=== PATIENT | male | born 1970 | race Caucasian/White ===

== ENCOUNTER 2016-12-03 18:44 | Emergency (ER) | payer OTHER ==
[~2016-12-03] VITALS: Ht 172.7 cm; Wt 83.2 kg
[~2016-12-03 18:44] MED LIST: B12-ACTIVE1 MG PO; CIPROFLOXACN500 MG PO; CIPROFLOXACN750 MG PO; LORTAB 5/3255 MG PO; MEDDOSEPAK OR; METRONIDAZOL500 MG PO; NAPROSYN500 MG OR; NAPROSYN500 MG PO; NAUSEA MED; NORCO1 TA1 PO; PROBIOTIC1 TAB PO; TRAMADOL HCL50 MG PO; ULTRAM50 MG PO; ZANTAC150 M1 PO; ZOFRAN4 MG/TAB PO
[2016-12-03] MEDS ORDERED: PANTOPRAZOLE SO40 MG PO (19:21)
[2016-12-03 20:03] LABS: HEMATOCRIT 50.4 % (39.0-50.0); HEMOGLOBIN 17.3 g/dl (14.0-18.0); IMMATURE GRANULOCYTES 0.3 % (0.0-1.0); MEAN CELL VOLUME 94.9 fL CALC (80.0-100.0); MEAN CORPUSCULAR HGB 32.6 pG CALC (26.0-32.0); MEAN CORPUSCULAR HGB CONC 34.3 g/L CALC (32.0-36.0); NEUT# 4.19 thou/uL (1.82-7.42); RED BLOOD COUNT 5.31 mill/uL (4.70-6.10); RED CELL DISTRI WIDTH 13.4 % (11.5-15.5)
[2016-12-03 20:20] LABS: ALBUMIN 4.6 g/dL (3.2-5.0); ALKALINE PHOSPHATASE 109 u/l (38-126); AMYLASE 87 u/l (30-110); ANION GAP 17 (6-22 (CALC)); BILIRUBIN, TOTAL 0.7 mg/dL (0.0-1.4); BUN 11 mg/dL (9-20); BUN/CREATININE RATIO 10 (12-20 (CALC)); CALCIUM 9.7 mg/dL (8.4-10.2); CARBON DIOXIDE 27 mmol/l (22-30); CHLORIDE 101 mmol/l (95-108); CREATININE 1.1 mg/dL (0.7-1.3); GFR > 60 ML/MIN (>=60 (CALC)); GFR FOR AFR.AMER. > 60 ML/MIN (>=60 (CALC)); GLUCOSE 99 mg/dL (75-110); LIPASE 163 u/l (23-300); POTASSIUM 4.2 mmol/l (3.5-5.1); SGOT/AST 86 u/l (17-59); SGPT/ALT 145 u/l (21-72); SODIUM 140 mmol/l (137-146); TOTAL PROTEIN 7.8 g/dL (6.3-8.2)
[2016-12-03 20:21] LABS: ACT PARTIAL THROMBO TIME 26.4 SECONDS (20.0-32.5); INTERNATIONAL NORMALIZED RATIO 1.1 RATIO (0.7-1.3); PROTHROMBIN TIME 11.5 SECONDS (9.0-12.5)
[2016-12-03 23:30] VITALS: BP 159/90
== END 2016-12-03 23:30 | DRG 392 ==
LOC: ED 18:44
PROVIDERS: Emergency Medicine
DX: K57.32 Diverticulitis of large intestine without perforation or abscess without bleeding (principal); R00.1 Bradycardia, unspecified; K62.5 Hemorrhage of anus and rectum; R10.32 Left lower quadrant pain; R19.7 Diarrhea, unspecified; R11.0 Nausea
CPT/HCPCS: J1956; S0164

== ENCOUNTER 2017-01-27 09:27 | Inpatient (IN) | payer OTHER ==
[~2017-01-27] VITALS: Ht 172.7 cm; Wt 80.2 kg
[~2017-01-27 09:27] MED LIST changes: +PANTOPRAZOLE SO40 MG PO
[2017-01-27 09:57] VITALS: BP 128/88
[2017-01-27 12:46] LABS: HEMATOCRIT 46.9 % (39.0-50.0); IMMATURE GRANULOCYTES 0.1 % (0.0-1.0); MEAN CELL VOLUME 89.8 fL CALC (80.0-100.0); MEAN CORPUSCULAR HGB 30.7 pG CALC (26.0-32.0); MEAN CORPUSCULAR HGB CONC 34.1 g/L CALC (32.0-36.0); NEUT# 5.18 thou/uL (1.82-7.42); RED BLOOD COUNT 5.22 mill/uL (4.70-6.10); RED CELL DISTRI WIDTH 11.9 % (11.5-15.5)
[2017-01-27 12:55] LABS: ALBUMIN 4.6 g/dL (3.2-5.0); ALKALINE PHOSPHATASE 64 u/l (38-126); ANION GAP 16 (6-22 (CALC)); BILIRUBIN, TOTAL 0.6 mg/dL (0.0-1.4); BUN 9 mg/dL (9-20); BUN/CREATININE RATIO 10 (12-20 (CALC)); CALCIUM 9.5 mg/dL (8.4-10.2); CARBON DIOXIDE 26 mmol/l (22-30); CHLORIDE 103 mmol/l (95-108); CREATININE 0.9 mg/dL (0.7-1.3); GFR > 60 ML/MIN (>=60 (CALC)); GFR FOR AFR.AMER. > 60 ML/MIN (>=60 (CALC)); GLUCOSE 115 mg/dL (75-110); POTASSIUM 4.5 mmol/l (3.5-5.1); SGOT/AST 34 u/l (17-59); SGPT/ALT 60 u/l (21-72); SODIUM 141 mmol/l (137-146); TOTAL PROTEIN 7.3 g/dL (6.3-8.2)
[2017-01-27 16:00] VITALS: BP 132/93
[2017-01-27 19:45] VITALS: BP 127/86
[2017-01-28] VITALS (7 sets, daily range): BP systolic 113–143; BP diastolic 71–92
[2017-01-29 03:40] VITALS: BP 128/86
[2017-01-29 08:35] VITALS: BP 149/93
[2017-01-29] MEDS ORDERED: AUGMENTIN875TAB PO (11:01)
[2017-01-29] MEDS ORDERED: BUSPAR5 M1 PO (11:02)
[2017-01-29] MEDS ORDERED: ZOFRAN ODT4 MG PO (11:04)
== END 2017-01-29 11:36 | disposition home or self-care (01) | DRG 392 ==
LOC: ENPENDDIS → MS2 09:27
PROVIDERS: ADMIT Internal Medicine; ATTEND Internal Medicine
DX: K57.32 Diverticulitis of large intestine without perforation or abscess without bleeding (principal); F41.9 Anxiety disorder, unspecified; K29.70 Gastritis, unspecified, without bleeding
CPT/HCPCS: J1650

== ENCOUNTER 2017-02-15 16:40 | Inpatient (IN) | payer OTHER ==
[~2017-02-15] VITALS: Ht 172.7 cm; Wt 70.0 kg
[~2017-02-15 16:40] MED LIST changes: +AUGMENTIN875TAB PO; +BUSPAR5 M1 PO; +ZOFRAN ODT4 MG PO
[2017-02-15 17:34] LABS: HEMATOCRIT 48.9 % (39.0-50.0); HEMOGLOBIN 16.7 g/dl (14.0-18.0); IMMATURE GRANULOCYTES 0.2 % (0.0-1.0); MEAN CELL VOLUME 88.9 fL CALC (80.0-100.0); MEAN CORPUSCULAR HGB 30.4 pG CALC (26.0-32.0); MEAN CORPUSCULAR HGB CONC 34.2 g/L CALC (32.0-36.0); NEUT# 10.74 thou/uL (1.82-7.42); RED BLOOD COUNT 5.5 mill/uL (4.70-6.10); RED CELL DISTRI WIDTH 12.1 % (11.5-15.5)
[2017-02-15 17:49] LABS: ALBUMIN 4.6 g/dL (3.2-5.0); ALKALINE PHOSPHATASE 96 u/l (38-126); AMYLASE 79 u/l (30-110); ANION GAP 16 (6-22 (CALC)); BILIRUBIN, TOTAL 0.5 mg/dL (0.0-1.4); BUN 10 mg/dL (9-20); BUN/CREATININE RATIO 13 (12-20 (CALC)); CALCIUM 9.4 mg/dL (8.4-10.2); CARBON DIOXIDE 27 mmol/l (22-30); CHLORIDE 104 mmol/l (95-108); CREATININE 0.8 mg/dL (0.7-1.3); GFR > 60 ML/MIN (>=60 (CALC)); GFR FOR AFR.AMER. > 60 ML/MIN (>=60 (CALC)); GLUCOSE 101 mg/dL (75-110); LIPASE 104 u/l (23-300); SGOT/AST 24 u/l (17-59); SGPT/ALT 51 u/l (21-72); SODIUM 143 mmol/l (137-146); TOTAL PROTEIN 7.2 g/dL (6.3-8.2)
[2017-02-15 19:33] LABS: URINE BILIRUBIN - DIPSTICK NEGATIVE (NEGATIVE); URINE BLOOD DIPSTICK NEGATIVE (NEGATIVE); URINE CLARITY CLEAR; URINE COLOR YELLOW; URINE GLUCOSE - DIPSTICK NEGATIVE (NEGATIVE); URINE KETONE NEGATIVE (NEGATIVE); URINE LEUK ESTERASE NEGATIVE (NEGATIVE); URINE NITRITE - DIPSTICK NEGATIVE (Negative); URINE PH 5.5 (4.5-8.0); URINE PROTEIN - DIPSTICK NEGATIVE (NEG-TRACE); URINE UROBILINOGEN - DIPSTICK 0.2 E.U./dL (0.2)
[2017-02-15] MEDS ORDERED: XANAX0.25 MG PO (20:13)
[2017-02-15] MEDS ORDERED: AMOX/K CLAV875 M1 PO (20:14)
[2017-02-16 05:00] VITALS: BP 106/74
[2017-02-16 07:26] VITALS: BP 122/79
[2017-02-16 13:45] VITALS: BP 131/71
[2017-02-16 16:15] VITALS: BP 119/76
[2017-02-16 20:30] VITALS: BP 124/77
[2017-02-16 23:55] VITALS: BP 109/71
[2017-02-17 04:35] VITALS: BP 112/72
[2017-02-17 06:21] LABS: HEMATOCRIT 42.2 % (39.0-50.0); HEMOGLOBIN 14.1 g/dl (14.0-18.0); IMMATURE GRANULOCYTES 0.2 % (0.0-1.0); MEAN CELL VOLUME 91.1 fL CALC (80.0-100.0); MEAN CORPUSCULAR HGB 30.5 pG CALC (26.0-32.0); MEAN CORPUSCULAR HGB CONC 33.4 g/L CALC (32.0-36.0); NEUT# 3.71 thou/uL (1.82-7.42); RED BLOOD COUNT 4.63 mill/uL (4.70-6.10); RED CELL DISTRI WIDTH 12.3 % (11.5-15.5)
[2017-02-17 06:41] LABS: ANION GAP 12 (6-22 (CALC)); BUN 6 mg/dL (9-20); BUN/CREATININE RATIO 6 (12-20 (CALC)); CALCIUM 8.5 mg/dL (8.4-10.2); CARBON DIOXIDE 25 mmol/l (22-30); CHLORIDE 109 mmol/l (95-108); CREATININE 0.9 mg/dL (0.7-1.3); GFR > 60 ML/MIN (>=60 (CALC)); GFR FOR AFR.AMER. > 60 ML/MIN (>=60 (CALC)); GLUCOSE 82 mg/dL (75-110); POTASSIUM 3.9 mmol/l (3.5-5.1); SODIUM 142 mmol/l (137-146)
[2017-02-17 08:12] VITALS: BP 128/72
[2017-02-17 09:13] LABS: C. DIFFICILE TOXIN A&B NEGATIVE (NEGATIVE)
[2017-02-17 11:11] VITALS: BP 130/80
[2017-02-17 15:17] VITALS: BP 114/69
[2017-02-17 19:05] VITALS: BP 120/73
[2017-02-17 23:25] VITALS: BP 127/77
[2017-02-18 04:33] VITALS: BP 119/74
[2017-02-18 07:43] VITALS: BP 135/82
[2017-02-18] MEDS ORDERED: METRONIDAZOL500 MG PO (11:22)
[2017-02-18] MEDS ORDERED: XANAX0.25 MG PO (11:22)
[2017-02-18] MEDS ORDERED: FLORASTOR250 M1 PO (11:22)
[2017-02-18] MEDS ORDERED: DILAUDID 2MG2 MG/TA1 PO (11:22)
[2017-02-18] MEDS ORDERED: INVANZ1 GM IJ (11:22)
[2017-02-18 13:00] VITALS: BP 136/84
== END 2017-02-18 14:53 | disposition home or self-care (01) | DRG 392 ==
LOC: ENPENDDIS → ED 16:40 → ED-I 19:40 → ED 20:08 → MS2 20:09
PROVIDERS: Emergency Medicine; Internal Medicine; Nurse Practitioner Family; ADMIT Internal Medicine; ATTEND Internal Medicine
DX: K57.32 Diverticulitis of large intestine without perforation or abscess without bleeding (principal); N20.0 Calculus of kidney; F41.0 Panic disorder [episodic paroxysmal anxiety]; K44.9 Diaphragmatic hernia without obstruction or gangrene; K29.70 Gastritis, unspecified, without bleeding
CPT/HCPCS: J1335; J1650; J2060

== ENCOUNTER 2017-05-08 12:02 | Emergency (ER) | payer OTHER ==
[~2017-05-08] VITALS: Ht 172.7 cm; Wt 79.0 kg
[~2017-05-08 12:02] MED LIST changes: +AMOX/K CLAV875 M1 PO; +DILAUDID 2MG2 MG/TA1 PO; +FLORASTOR250 M1 PO; +INVANZ1 GM IJ; +XANAX0.25 MG PO
[2017-05-08 13:45] LABS: URINE BILIRUBIN - DIPSTICK NEGATIVE (NEGATIVE); URINE BLOOD DIPSTICK NEGATIVE (NEGATIVE); URINE CLARITY CLEAR; URINE COLOR YELLOW; URINE GLUCOSE - DIPSTICK NEGATIVE (NEGATIVE); URINE KETONE NEGATIVE (NEGATIVE); URINE LEUK ESTERASE NEGATIVE (NEGATIVE); URINE NITRITE - DIPSTICK NEGATIVE (Negative); URINE PROTEIN - DIPSTICK NEGATIVE (NEG-TRACE); URINE SPECIFIC GRAVITY <=1.005; URINE UROBILINOGEN - DIPSTICK 0.2 E.U./dL (0.2)
[2017-05-08 13:49] LABS: BARBITURATES NEGATIVE (NEGATIVE); COCAINE NEGATIVE (NEGATIVE); METHADONE NEGATIVE (NEGATIVE); OXCYCODONE NEGATIVE (NEGATIVE); TETRAHYDROCANNABIONOL NEGATIVE (NEGATIVE); TRICYLIC ANTIDEPRESSANTS NEGATIVE (NEGATIVE)
[2017-05-08 13:59] LABS: HEMATOCRIT 47.7 % (39.0-50.0); IMMATURE GRANULOCYTES 0.8 % (0.0-1.0); MEAN CELL VOLUME 86.9 fL CALC (80.0-100.0); MEAN CORPUSCULAR HGB CONC 35.6 g/L CALC (32.0-36.0); NEUT# 6.8 thou/uL (1.82-7.42); RED BLOOD COUNT 5.49 mill/uL (4.70-6.10); RED CELL DISTRI WIDTH 13.2 % (11.5-15.5)
[2017-05-08 14:18] LABS: ALBUMIN 4.8 g/dL (3.2-5.0); ALKALINE PHOSPHATASE 121 u/l (38-126); AMYLASE 51 u/l (30-110); ANION GAP 18 (6-22 (CALC)); BILIRUBIN, TOTAL 1.1 mg/dL (0.0-1.4); BUN 8 mg/dL (9-20); BUN/CREATININE RATIO 11 (12-20 (CALC)); CALCIUM 9.8 mg/dL (8.4-10.2); CARBON DIOXIDE 26 mmol/l (22-30); CHLORIDE 103 mmol/l (95-108); CREATININE 0.8 mg/dL (0.7-1.3); GFR > 60 ML/MIN (>=60 (CALC)); GFR FOR AFR.AMER. > 60 ML/MIN (>=60 (CALC)); GLUCOSE 92 mg/dL (75-110); LIPASE 79 u/l (23-300); MAGNESIUM 2.2 mg/dL (1.6-2.3); POTASSIUM 3.6 mmol/l (3.5-5.1); SGOT/AST 23 u/l (17-59); SGPT/ALT 47 u/l (21-72); SODIUM 143 mmol/l (137-146); TOTAL PROTEIN 7.8 g/dL (6.3-8.2)
[2017-05-08 14:52] VITALS: BP 141/99
== END 2017-05-08 15:08 | disposition home or self-care (01) | DRG 880 ==
LOC: ED 12:02
PROVIDERS: Emergency Medicine
DX: F41.9 Anxiety disorder, unspecified (principal); K21.9 Gastro-esophageal reflux disease without esophagitis; K29.70 Gastritis, unspecified, without bleeding; Z90.49 Acquired absence of other specified parts of digestive tract

== ENCOUNTER 2017-05-30 08:17 | Emergency (ER) | payer OTHER ==
[~2017-05-30] VITALS: Ht 172.7 cm; Wt 75.0 kg
[2017-05-30 08:40] LABS: HEMOGLOBIN 16.9 g/dl (14.0-18.0); IMMATURE GRANULOCYTES 0.4 % (0.0-1.0); MEAN CELL VOLUME 89.3 fL CALC (80.0-100.0); MEAN CORPUSCULAR HGB 30.8 pG CALC (26.0-32.0); MEAN CORPUSCULAR HGB CONC 34.5 g/L CALC (32.0-36.0); NEUT# 4.77 thou/uL (1.82-7.42); RED BLOOD COUNT 5.49 mill/uL (4.70-6.10); RED CELL DISTRI WIDTH 12.5 % (11.5-15.5)
[2017-05-30 08:55] LABS: ALBUMIN 4.5 g/dL (3.2-5.0); ALKALINE PHOSPHATASE 108 u/l (38-126); ANION GAP 15 (6-22 (CALC)); BILIRUBIN, TOTAL 0.6 mg/dL (0.0-1.4); BUN 13 mg/dL (9-20); BUN/CREATININE RATIO 12 (12-20 (CALC)); CALCIUM 9.5 mg/dL (8.4-10.2); CARBON DIOXIDE 25 mmol/l (22-30); CHLORIDE 107 mmol/l (95-108); CREATININE 1.1 mg/dL (0.7-1.3); GFR > 60 ML/MIN (>=60 (CALC)); GFR FOR AFR.AMER. > 60 ML/MIN (>=60 (CALC)); GLUCOSE 139 mg/dL (75-110); POTASSIUM 3.7 mmol/l (3.5-5.1); SGOT/AST 30 u/l (17-59); SGPT/ALT 57 u/l (21-72); SODIUM 143 mmol/l (137-146); TOTAL PROTEIN 7.2 g/dL (6.3-8.2)
[2017-05-30] MEDS ORDERED: PERCOCET 5/325M1 TAB PO (10:11)
[2017-05-30] MEDS ORDERED: TAMSULOSIN0.4 MG PO (10:11)
[2017-05-30] MEDS ORDERED: BACTRIM DS1 TAB PO (10:11)
[2017-05-30] MEDS ORDERED: ZOFRAN ODT4 MG PO (10:11)
[2017-05-30 10:20] VITALS: BP 141/72
== END 2017-05-30 10:30 | disposition home or self-care (01) | DRG 694 ==
LOC: ED 08:17
PROVIDERS: Emergency Medicine
DX: N20.1 Calculus of ureter (principal); K21.9 Gastro-esophageal reflux disease without esophagitis; K29.70 Gastritis, unspecified, without bleeding; K57.30 Diverticulosis of large intestine without perforation or abscess without bleeding

== ENCOUNTER 2017-06-01 06:31 | Emergency (ER) | payer OTHER ==
[~2017-06-01] VITALS: Ht 172.7 cm; Wt 83.4 kg
[~2017-06-01 06:31] MED LIST changes: +BACTRIM DS1 TAB PO; +PERCOCET 5/325M1 TAB PO; +TAMSULOSIN0.4 MG PO
[2017-06-01 07:38] LABS: HEMATOCRIT 42.3 % (39.0-50.0); HEMOGLOBIN 14.9 g/dl (14.0-18.0); IMMATURE GRANULOCYTES 0.4 % (0.0-1.0); MEAN CELL VOLUME 88.1 fL CALC (80.0-100.0); MEAN CORPUSCULAR HGB CONC 35.2 g/L CALC (32.0-36.0); NEUT# 11.52 thou/uL (1.82-7.42); RED BLOOD COUNT 4.8 mill/uL (4.70-6.10); RED CELL DISTRI WIDTH 12.8 % (11.5-15.5)
[2017-06-01 07:54] LABS: ALBUMIN 3.8 g/dL (3.2-5.0); ALKALINE PHOSPHATASE 100 u/l (38-126); ANION GAP 13 (6-22 (CALC)); BILIRUBIN, TOTAL 0.9 mg/dL (0.0-1.4); BUN 7 mg/dL (9-20); BUN/CREATININE RATIO 7 (12-20 (CALC)); CALCIUM 9.1 mg/dL (8.4-10.2); CARBON DIOXIDE 23 mmol/l (22-30); CHLORIDE 110 mmol/l (95-108); CREATININE 1.1 mg/dL (0.7-1.3); GFR > 60 ML/MIN (>=60 (CALC)); GFR FOR AFR.AMER. > 60 ML/MIN (>=60 (CALC)); GLUCOSE 118 mg/dL (75-110); POTASSIUM 4.2 mmol/l (3.5-5.1); SGOT/AST 14 u/l (17-59); SGPT/ALT 40 u/l (21-72); SODIUM 141 mmol/l (137-146); TOTAL PROTEIN 6.3 g/dL (6.3-8.2)
[2017-06-01 08:04] LABS: URINE BILIRUBIN - DIPSTICK NEGATIVE (NEGATIVE); URINE BLOOD DIPSTICK MODERATE (NEGATIVE); URINE CLARITY CLEAR; URINE COLOR YELLOW; URINE GLUCOSE - DIPSTICK NEGATIVE (NEGATIVE); URINE KETONE TRACE mg/dL (NEGATIVE); URINE LEUK ESTERASE TRACE (NEGATIVE); URINE NITRITE - DIPSTICK NEGATIVE (Negative); URINE PROTEIN - DIPSTICK NEGATIVE (NEG-TRACE); URINE SPECIFIC GRAVITY <=1.005; URINE UROBILINOGEN - DIPSTICK 0.2 E.U./dL (0.2)
[2017-06-01 08:15] LABS: URINE WBC 0-2 WBC/hpf (0-5)
[2017-06-01 08:16] LABS: URINE RBC 0-2 RBC/hpf (0-5)
[2017-06-01 10:07] VITALS: BP 122/75
[2017-06-01] MEDS ORDERED: MIRALAX3350 N1 PO (10:27)
== END 2017-06-01 10:25 | disposition home or self-care (01) | DRG 694 ==
LOC: ED 06:31
PROVIDERS: Emergency Medicine
DX: N20.0 Calculus of kidney (principal); K21.9 Gastro-esophageal reflux disease without esophagitis; K29.70 Gastritis, unspecified, without bleeding
CPT/HCPCS: Q9967

== ENCOUNTER → 2018-05-22 | Outpatient (REF) | payer SELFPAY ==
[~2018-05-22] MED LIST changes: +MIRALAX3350 N1 PO
[2018-05-22 10:46] LABS: URINE BILIRUBIN - DIPSTICK NEGATIVE (NEGATIVE); URINE BLOOD DIPSTICK TRACE-INTACT (NEGATIVE); URINE COLOR YELLOW; URINE GLUCOSE - DIPSTICK NEGATIVE (NEGATIVE); URINE KETONE NEGATIVE (NEGATIVE); URINE LEUK ESTERASE NEGATIVE (Negative); URINE NITRITE - DIPSTICK NEGATIVE (Negative); URINE PROTEIN - DIPSTICK NEGATIVE (NEG-TRACE); URINE SPECIFIC GRAVITY 1.025; URINE UROBILINOGEN - DIPSTICK 0.2 E.U./dL (0.2)
[2018-05-22 10:55] LABS: URINE CLARITY CLEAR
[2018-05-22 11:23] LABS: ALBUMIN 4.2 g/dL (3.2-5.0); ALKALINE PHOSPHATASE 108 u/l (38-126); ANION GAP 14 (6-22 (CALC)); BILIRUBIN, TOTAL 0.6 mg/dL (0.0-1.4); BUN 17 mg/dL (9-20); BUN/CREATININE RATIO 15 (12-20 (CALC)); CARBON DIOXIDE 26 mmol/l (22-30); CHLORIDE 105 mmol/l (95-108); CREATININE 1.1 mg/dL (0.7-1.3); GFR > 60 ML/MIN (>=60 (CALC)); GFR FOR AFR.AMER. > 60 ML/MIN (>=60 (CALC)); POTASSIUM 4.3 mmol/l (3.5-5.1); SGOT/AST 19 u/l (17-59); SODIUM 140 mmol/l (137-146); TOTAL PROTEIN 7.1 g/dL (6.3-8.2)
== END | disposition home or self-care (01) | DRG 696 ==
LOC: LAB 10:01
PROVIDERS: ATTEND Nurse Practitioner
DX: R31.9 Hematuria, unspecified (principal); M25.551 Pain in right hip

== ENCOUNTER 2019-09-13 12:22 | Inpatient (IN) | payer SELFPAY ==
[~2019-09-13] VITALS: Ht 172.7 cm; Wt 87.0 kg
--- NOTE | 2019-09-13 12:40 | NUR ---
PATIENT SENT TO WAITING ROOM, AMBULATES WITH STEADY GAIT. WAITING ON CLEAN ROOM. VERBAL UNDERSTANDING FROM PATIENT.
--- NOTE | 2019-09-13 12:52 | NUR ---
PATIENT AMBULATES TO ROOM WITH STEADY GAIT, GOWN GIVEN. AT BEDSIDE.
[2019-09-13 13:22] LABS: HEMATOCRIT 55.1 % (39.0-50.0); HEMOGLOBIN 18.8 g/dl (14.0-18.0); IMMATURE GRANULOCYTES 0.4 % (0.0-5.0); MEAN CELL VOLUME 84.3 fL CALC (80.0-100.0); MEAN CORPUSCULAR HGB 28.7 pG CALC (26.0-32.0); MEAN CORPUSCULAR HGB CONC 34.1 g/L CALC (32.0-36.0); NEUT# 14.15 thou/uL (1.82-7.42); RED BLOOD COUNT 6.54 mill/uL (4.70-6.10); RED CELL DISTRI WIDTH 13.2 % (11.5-15.5)
[2019-09-13 13:41] LABS: ALBUMIN 4.7 g/dL (3.2-5.0); ALKALINE PHOSPHATASE 94 u/l (38-126); ANION GAP 16 (6-22 (CALC)); BUN 13 mg/dL (9-20); BUN/CREATININE RATIO 11 (12-20 (CALC)); CARBON DIOXIDE 26 mmol/l (22-30); CHLORIDE 95 mmol/l (95-108); CREATININE 1.2 mg/dL (0.7-1.3); GFR > 60 ML/MIN (>=60 (CALC)); GFR FOR AFR.AMER. > 60 ML/MIN (>=60 (CALC)); LIPASE 67 u/l (23-300); POTASSIUM 4.4 mmol/l (3.5-5.1); SGOT/AST 25 u/l (17-59); SODIUM 133 mmol/l (137-146); TOTAL PROTEIN 8.2 g/dL (6.3-8.2)
--- NOTE | 2019-09-13 13:47 | NUR ---
MD AT BEDSIDE EVALUATING PT AND DISCUSSING PT HX.
[2019-09-13] MEDS ORDERED: LOSARTAN POTASS50 MG PO (14:36)
[2019-09-13] MEDS ORDERED: BYSTOLIC10 MG PO (14:36)
[2019-09-13] MEDS ORDERED: PANTOPRAZOLE SO40 M1 PO (14:37)
[2019-09-13] MEDS ORDERED: NORTRIPTYLIN10 MG PO (14:37)
[2019-09-13] MEDS ORDERED: ALPRAZOLAM0.25 MG PO (14:38)
--- NOTE | 2019-09-13 14:39 | NUR ---
PT RETURNED FROM CT ADVSIED OF WAIT TIME. VSS. IV SITE HEALTHY. PT REPORTS FEELING IMPROVED DENIES PAIN AT THIS TIME.
--- NOTE | 2019-09-13 16:13 | NUR ---
NG TUBE PLACEMENT VERIFIED VIA AUSCULTATION.
--- NOTE | 2019-09-13 16:58 | NUR ---
REPORT CALLED TO AIDEN, NURSE ON [facility]
--- NOTE | 2019-09-13 17:14 | NUR ---
DR MORAN AT BEDSIDE TO SEE PT. DISCUSSED POC W/PT.
[2019-09-13 18:00] LABS: URINE BILIRUBIN - DIPSTICK NEGATIVE (NEGATIVE); URINE BLOOD DIPSTICK NEGATIVE (NEGATIVE); URINE COLOR YELLOW; URINE GLUCOSE - DIPSTICK NEGATIVE (NEGATIVE); URINE KETONE TRACE mg/dL (NEGATIVE); URINE LEUK ESTERASE NEGATIVE (NEGATIVE); URINE NITRITE - DIPSTICK NEGATIVE (Negative); URINE PH 5.5 (4.5-8.0); URINE PROTEIN - DIPSTICK NEGATIVE (NEG-TRACE); URINE SPECIFIC GRAVITY <=1.005; URINE UROBILINOGEN - DIPSTICK 0.2 E.U./dL (0.2)
--- NOTE | 2019-09-13 18:10 | NUR ---
PT TO MEDSURG IN STABLE CONDITION. NG TUBE PATENT. IV SITE LAC HEALTHY. VSS. DENIES PAIN. RETURN OF APPROX 600ML OF DARK BROWN FLUID IN SUCTION CANISTER.
--- NOTE | 2019-09-13 18:15 | NUR ---
PT ARRIVED TO FLOOR ACCOMPANIED BY RN. NO DISTRESS
[2019-09-13 18:37] VITALS: BP 134/92
--- NOTE | 2019-09-13 18:57 | NUR ---
CALL PLACED TO MANAGER UTILITY FOR NATHAN
--- NOTE | 2019-09-13 19:15 | NUR ---
REPORT RECEIVED FROM DIPAK ESCOBAR. PT RESTING IN BED WITH FAMILY AT BEDSIDE. SAFETY PRECAUTIONS NI PLACE. WILL CONTINUE TO MONITOR.
--- NOTE | 2019-09-13 20:10 | NUR ---
PT RESTING IN BED FAMILY AT BEDSIDE. PT IS ALERT AND ORIENTED. RESPIRATIONS EVEN AND UNLABORED, LUNGS SOUND CLEAR. PEDEAL PULSES STRONG. SAFETY PRECAUTIONS IN PLACE. WILL CONTINUE TO MONITOR.
[2019-09-13 23:56] VITALS: BP 130/89
--- NOTE | 2019-09-14 00:15 | NUR ---
PT RESTING IN BED, RESPIRATIONS EVEN AND UNLABORED ON RA. NO S.S OF DISTRESS AT THIS TIME. SAFETY PRECAUTIONS IN PLACE. WILL CONTINUE TO MONITOR.
[2019-09-14 04:00] VITALS: BP 134/82
--- NOTE | 2019-09-14 04:02 | NUR ---
PT RESTING IN BED, RESPIRATIONS EVEN AND UNLABORED ON RA. NO S.S OF DISTRESS AT THIS TIME. SAFETY PRECAUTIONS IN PLACE. WILL CONTINUE TO MONITOR.
[2019-09-14 05:31] LABS: ALBUMIN 3.8 g/dL (3.2-5.0); ALKALINE PHOSPHATASE 75 u/l (38-126); ANION GAP 13 (6-22 (CALC)); BUN 19 mg/dL (9-20); BUN/CREATININE RATIO 14 (12-20 (CALC)); CARBON DIOXIDE 26 mmol/l (22-30); CHLORIDE 100 mmol/l (95-108); CREATININE 1.4 mg/dL (0.7-1.3); GFR 53 ML/MIN (>=60 (CALC)); GFR FOR AFR.AMER. > 60 ML/MIN (>=60 (CALC)); POTASSIUM 4.6 mmol/l (3.5-5.1); SGOT/AST 21 u/l (17-59); SODIUM 134 mmol/l (137-146); TOTAL PROTEIN 6.7 g/dL (6.3-8.2)
[2019-09-14 05:38] LABS: BILIRUBIN, TOTAL 1.5 mg/dL (0.0-1.4)
[2019-09-14 07:55] VITALS: BP 131/90
--- NOTE | 2019-09-14 07:55 | NUR ---
RESTING IN BED ON ROUNDS. PATIENT VERY ANXIOUS AND C/O PAIN. SHIFT ASSESSMENT COMPLETED. NGT TO LIS DRAINING DARK GREEN MATERIAL. ABD SOFTLY DISTENDED WITH ACTIVE BOWEL SOUNDS. C/O TENDERNESS TO RLQ AND LLQ. IV SITE IN LAC #22 WITH NS INFUSING AT 150 ML/HR. DISCUSSED PLAN OF CARE. DENIES NEEDS AT THIS TIME. CALL SHABAZZ IN REACH.
--- NOTE | 2019-09-14 08:06 | NUR ---
MEDICATED FOR ABD PAIN ORDERED.
--- NOTE | 2019-09-14 08:20 | NUR ---
PATIENT LEFT UNIT FOR SMALL BOWEL SERIES VIA WC.
[2019-09-14 08:38] LABS: HEMATOCRIT 50.4 % (39.0-50.0); MEAN CORPUSCULAR HGB 28.5 pG CALC (26.0-32.0); MEAN CORPUSCULAR HGB CONC 33.1 g/L CALC (32.0-36.0); RED BLOOD COUNT 5.86 mill/uL (4.70-6.10); RED CELL DISTRI WIDTH 13.2 % (11.5-15.5)
[2019-09-14 08:39] LABS: HEMOGLOBIN 16.7 g/dl (14.0-18.0)
--- NOTE | 2019-09-14 10:45 | NUR ---
PATIENT RETURNED FROM XRAY DEPARTMENT. NGT REMAINS CLAMPED AND PATIENT UP AMBULATING IN HALLS WITH STABLE STANCE AND STEADY GAIT. PATIENT HAS HAD A LOOSE BROWN STOOL SINCE RETURNING FROM XRAY.
--- NOTE | 2019-09-14 11:25 | NUR ---
PATIENT BACK TO XRAY.
--- NOTE | 2019-09-14 12:10 | NUR ---
PATIENT RETURNED FROM XRAY. NGT HAS BEEN REMOVED. DR WATTERS IN TO SEE PATIENT.
[2019-09-14] MEDS ORDERED: CIPROFLOXACN500 MG PO (12:30)
[2019-09-14] MEDS ORDERED: METRONIDAZOL500 MG PO (12:30)
--- NOTE | 2019-09-14 13:50 | NUR ---
Discharge instructions given. Patient verbalizes understanding of same. Discharged in stable condition via Wheelchair to Home with spouse. All belongings sent with pt.
== END 2019-09-14 15:50 | disposition home or self-care (01) | DRG 389 ==
LOC: ED 12:22 → ED-I 13:55 → ED 15:48 → MS2 15:49
PROVIDERS: Family Medicine; Surgery; ADMIT Internal Medicine; ATTEND Internal Medicine
DX: K56.600 Partial intestinal obstruction, unspecified as to cause (principal); E87.1 Hypo-osmolality and hyponatremia; E86.0 Dehydration; I10 Essential (primary) hypertension; F41.1 Generalized anxiety disorder; K29.70 Gastritis, unspecified, without bleeding; Z90.49 Acquired absence of other specified parts of digestive tract
CPT/HCPCS: J1650; J2060; Q9967; S0164

== ENCOUNTER 2021-08-31 01:47 | Observation (INO) | payer OTHER ==
[~2021-08-31] VITALS: Ht 172.7 cm; Wt 86.0 kg
[~2021-08-31 01:47] MED LIST changes: +ALPRAZOLAM0.25 MG PO; +BYSTOLIC10 MG PO; +LOSARTAN POTASS50 MG PO; +NORTRIPTYLIN10 MG PO; +PANTOPRAZOLE SO40 M1 PO
--- NOTE | 2021-08-31 01:49 | NUR ---
BY EMS TO ROOM.
--- NOTE | 2021-08-31 02:00 | NUR ---
REMOVED ALL WET CLOTHING. CLEANED MUD OFF FACE AND ARMS.
[2021-08-31 02:36] LABS: HEMATOCRIT 49.1 % (39.0-50.0); HEMOGLOBIN 16.4 g/dl (14.0-18.0); IMMATURE GRANULOCYTES 0.2 % (0.0-5.0); MEAN CORPUSCULAR HGB 31.8 pG CALC (26.0-32.0); MEAN CORPUSCULAR HGB CONC 33.4 g/dL CAL (32.0-36.0); NEUT# 17.9 thou/uL (1.82-7.42); RED BLOOD COUNT 5.15 mill/uL (4.70-6.10); RED CELL DISTRI WIDTH 13.5 % (11.5-15.5)
[2021-08-31 02:41] LABS: MEAN CELL VOLUME 95.3 fL CALC (80.0-100.0)
[2021-08-31 02:51] LABS: ALBUMIN 4.8 g/dL (3.2-5.0); ALKALINE PHOSPHATASE 137 u/l (38-126); BILIRUBIN, TOTAL 0.6 mg/dL (0.0-1.4); BUN 11 mg/dL (9-20); BUN/CREATININE RATIO 11 (12-20 (CALC)); CHLORIDE 103 mmol/l (95-108); CREATININE 1.1 mg/dL (0.7-1.3); ETHYL ALCOHOL 261 mg/dl (0-30); GFR > 60 ML/MIN (>=60 (CALC)); GFR FOR AFR.AMER. > 60 ML/MIN (>=60 (CALC)); POTASSIUM 3.9 mmol/l (3.5-5.1); SODIUM 139 mmol/l (137-146); TOTAL PROTEIN 7.6 g/dL (6.3-8.2)
[2021-08-31 02:54] LABS: ANION GAP 28 (6-22 (CALC)); CARBON DIOXIDE 12 mmol/l (22-30); SGOT/AST 95 u/l (17-59)
[2021-08-31 03:19] LABS: MYOGLOBIN 2475 ng/mL (0 - 121)
--- NOTE | 2021-08-31 03:43 | NUR ---
PT RESTING ON ED COT
--- NOTE | 2021-08-31 04:21 | NUR ---
PT RESTING ON ED COT; TEMP RECHECKED-97.5F
[2021-08-31 05:21] LABS: URINE BILIRUBIN - DIPSTICK NEGATIVE (NEGATIVE); URINE BLOOD DIPSTICK LARGE (NEGATIVE); URINE COLOR YELLOW; URINE GLUCOSE - DIPSTICK NEGATIVE (NEGATIVE); URINE KETONE 40 mg/dL (NEGATIVE); URINE LEUK ESTERASE NEGATIVE (NEGATIVE); URINE PH 5.5 (4.5-8.0); URINE PROTEIN - DIPSTICK 30 mg/dL (NEG-TRACE); URINE SPECIFIC GRAVITY >=1.030; URINE UROBILINOGEN - DIPSTICK 0.2 E.U./dL (0.2)
[2021-08-31 05:27] LABS: URINE NITRITE - DIPSTICK NEGATIVE (Negative)
[2021-08-31 05:35] LABS: URINE SQUAMOUS EPITHELIAL CELL FEW EPI/hpf (0-FEW)
--- NOTE | 2021-08-31 05:58 | NUR ---
PT GIVEN WATER
--- NOTE | 2021-08-31 06:34 | NUR ---
PT AT BEDSIDE
--- NOTE | 2021-08-31 06:43 | NUR ---
MD AT BEDSIDE DISCUSSING PLAN OF CARE
--- NOTE | 2021-08-31 08:14 | NUR ---
PATIENT HAS BEEN GIVEN A BED BATH TO REMOVE MORE MUD AND DIRT. PLACED ON BEDSIDE COMMODE FOR DIARRHEA. RESTING IN BED AWAITING ADMISSION.
--- NOTE | 2021-08-31 09:45 | NUR ---
REPORT CALLED TO [facility] FOR ROOM 280
--- NOTE | 2021-08-31 09:55 | NUR ---
PT ARRIVED TO UNIT VIA STRETCHER WITH ER STAFF AT 0955. ASSISTED INTO BED WITH STAND BY ASSIST; PT C/O SEVERE NAUSEA AND SORE THROAT. DENIES PAIN OTHERWISE. RESPIRATIONS EVEN AND UNLABORED ON OXYGEN 3L VIA NC. PT IS VERY ANXIOUS AND TALKATIVE. ORIENTED TO ROOM AND CALL LIGHT SYSTEM. PLAN OF CARE DISCUSSED. PT ENCOURAGED TO VERBALIZE CONCERNS; STATES UNDERSTANDING. SAFETY MEASURES IN PLACE. CALL LIGHT WITHIN REACH.
[2021-08-31 10:04] VITALS: BP 147/76
--- NOTE | 2021-08-31 10:12 | NUR ---
DR. LOPEZ AT BEDSIDE. ZOFRAN GIVEN FOR NAUSEA.
--- NOTE | 2021-08-31 12:00 | NUR ---
XANAX GIVEN WITH OTHER SCHEDULED MEDICATIONS. LAB AT BEDSIDE FOR TROPONIN; PT VERY NERVOUS AND SCARED REGARDING ANYTHING INVOLVING IV. BLOOD DRAWN FROM IV SITE.
[2021-08-31 14:27] VITALS: BP 135/75
--- NOTE | 2021-08-31 14:51 | NUR ---
PT BECAME VERY ANXIOUS, HAD MODERATE EMESIS AND C/O FEELING VERY HOT; SKIN IS HOT AND DRY; TEMP 97.9. HEART RATE 122. RELAX TECHNIQUES ENCOURAGED; ZOFRAN GIVEN FOR NAUSEA. LINENS CHANGED. NOW AT BEDSIDE; DR. LOPEZ ALSO CURRENTLY AT BEDSIDE TO DISCUSS DIAGNOSIS. PT MORE AT EASE WITH IN ROOM; PERMISSION GRANTED FOR TO STAY AT BEDSIDE OVERNIGHT DUE TO PATIENT'S CONDITION AND SEVERE ANXIETY. HOME MEDS RECEIVED FROM AND SENT TO PHARMACY.
--- NOTE | 2021-08-31 14:59 | NUR ---
LABS DRAWN FROM IV SITE TO LAC; IV FLUIDS INFUSING AT 150 ML/HR.
--- NOTE | 2021-08-31 15:06 | NUR ---
94-98% ON ROOM AIR; OXYGEN REMOVED. PT SITTING UP IN BED VISITING WITH . FACE IS FLUSHED AND SLIGHTLY ANXIOUS. BRUSHED TEETH. NO REQUESTS AT THIS TIME.
--- NOTE | 2021-08-31 16:06 | NUR ---
IBU GIVEN PER REQUEST FOR HEADACHE AND SORE THROAT.
--- NOTE | 2021-08-31 18:14 | NUR ---
IBU EFFECTIVE FOR SORE THROAT AND HEADACHE. USING BEDSIDE URINAL.
[2021-08-31 19:30] VITALS: BP 140/68
[2021-08-31 23:49] VITALS: BP 126/66
[2021-09-01 04:30] VITALS: BP 143/76
[2021-09-01 06:12] LABS: MEAN CELL VOLUME 94.5 fL CALC (80.0-100.0); MEAN CORPUSCULAR HGB 32.2 pG CALC (26.0-32.0); MEAN CORPUSCULAR HGB CONC 34.1 g/dL CAL (32.0-36.0); RED BLOOD COUNT 4.38 mill/uL (4.70-6.10); RED CELL DISTRI WIDTH 13.5 % (11.5-15.5)
[2021-09-01 06:19] LABS: HEMATOCRIT 41.4 % (39.0-50.0); HEMOGLOBIN 14.1 g/dl (14.0-18.0)
[2021-09-01 06:37] LABS: BUN 9 mg/dL (9-20); BUN/CREATININE RATIO 10 (12-20 (CALC)); CHLORIDE 107 mmol/l (95-108); GFR > 60 ML/MIN (>=60 (CALC)); GFR FOR AFR.AMER. > 60 ML/MIN (>=60 (CALC)); POTASSIUM 3.7 mmol/l (3.5-5.1)
[2021-09-01 06:40] LABS: ANION GAP 7 (6-22 (CALC)); CARBON DIOXIDE 21 mmol/l (22-30); SODIUM 131 mmol/l (137-146)
[2021-09-01 06:54] LABS: CPK 5912 u/l (52-200)
--- NOTE | 2021-09-01 07:00 | NUR ---
REPORT FROM JERRY QUESADA. ASSUMED PT CARE.
[2021-09-01 08:03] VITALS: BP 140/74
--- NOTE | 2021-09-01 09:10 | NUR ---
PT REFUSED MEDICATIONS THIS AM STATES HE TAKES THEM IN THE EVENING. NOTIFIED CLAUDIO CORTEZ TO CHANGE THE TIME, PHARMACY NOTIFIED.
--- NOTE | 2021-09-01 10:41 | NUR ---
AT BEDSIDE TO DISCUSS POC.
[2021-09-01 11:10] VITALS: BP 118/81
--- NOTE | 2021-09-01 13:34 | NUR ---
RAMP BOSS AT BEDSIDE TO OBTAIN LABS.
--- NOTE | 2021-09-01 15:20 | NUR ---
Discharge instructions given. Patient verbalizes understanding of same. Discharged in stable condition via Wheelchair to Home with spouse. All belongings sent with pt.
== END 2021-09-01 15:20 | disposition home or self-care (01) | DRG 558 ==
LOC: ED 01:47 → ED-I 03:13 → ED 06:20 → ED-I 06:54 → MS2 06:54 → ED 07:02 → ED-I 07:02 → ED 07:37 → MS2 09:30 → ED-I 09:30 → UNDODEPER 09:47 → MS2 09-01 15:20
PROVIDERS: Family Medicine; Hospitalist; ADMIT Internal Medicine; ATTEND Internal Medicine
DX: M62.82 Rhabdomyolysis (principal); E87.2 Acidosis; E86.0 Dehydration; F10.129 Alcohol abuse with intoxication, unspecified; F41.1 Generalized anxiety disorder; F32.A Depression, unspecified; I10 Essential (primary) hypertension; K21.9 Gastro-esophageal reflux disease without esophagitis; Y90.8 Blood alcohol level of 240 mg/100 ml or more; Z87.442 Personal history of urinary calculi; Z20.822 Contact with and (suspected) exposure to COVID-19
CPT/HCPCS: G0378; J1650

== ENCOUNTER 2022-02-13 10:54 | Emergency (ER) | payer SELFPAY ==
[~2022-02-13] VITALS: Ht 172.7 cm; Wt 91.0 kg
[2022-02-13 11:01] VITALS: BP 148/94
[2022-02-13 11:21] LABS: IMMATURE GRANULOCYTES 0.2 % (0.0-5.0); MEAN CELL VOLUME 92.5 fL CALC (80.0-100.0); MEAN CORPUSCULAR HGB CONC 33.5 g/dL CAL (32.0-36.0); NEUT# 2.97 thou/uL (1.82-7.42); RED BLOOD COUNT 5.2 mill/uL (4.70-6.10); RED CELL DISTRI WIDTH 13.2 % (11.5-15.5)
[2022-02-13 11:23] LABS: HEMATOCRIT 48.1 % (39.0-50.0); HEMOGLOBIN 16.1 g/dl (14.0-18.0)
[2022-02-13 11:40] LABS: ALBUMIN 4.5 g/dL (3.2-5.0); ALKALINE PHOSPHATASE 114 u/l (38-126); ANION GAP 11 (6-22 (CALC)); BILIRUBIN, TOTAL 0.7 mg/dL (0.0-1.4); BUN 13 mg/dL (9-20); BUN/CREATININE RATIO 11 (12-20 (CALC)); CARBON DIOXIDE 26 mmol/l (22-30); CHLORIDE 105 mmol/l (95-108); CREATININE 1.2 mg/dL (0.7-1.3); GFR FOR AFR.AMER. > 60 ML/MIN (>=60 (CALC)); GFR OTHER RACES > 60 ML/MIN (>=60 (CALC)); POTASSIUM 4.6 mmol/l (3.5-5.1); SGOT/AST 93 u/l (17-59); SODIUM 138 mmol/l (137-146); TOTAL PROTEIN 7.5 g/dL (6.3-8.2)
[2022-02-13 12:32] VITALS: BP 148/94
== END 2022-02-13 12:54 | disposition home or self-care (01) | DRG 313 ==
LOC: ED 10:54
PROVIDERS: Family Medicine
DX: R07.89 Other chest pain (principal); R91.1 Solitary pulmonary nodule; I10 Essential (primary) hypertension; K21.9 Gastro-esophageal reflux disease without esophagitis; F41.9 Anxiety disorder, unspecified; V92.09XA Drowning and submersion due to fall off unspecified watercraft, initial encounter
CPT/HCPCS: Q9967